=== PATIENT | female | born 1980 | race African-American/Black ===

== ENCOUNTER 2021-01-28 19:03 | Emergency (ER) | payer BC, SELFPAY ==
[2021-01-29 15:07] LABS: SARS-CoV-2 PCR by NAA DETECTED (NotDetected)
== END 2021-01-28 20:19 | disposition home or self-care (01) ==
LOC: CSHERS 19:03
DX: U07.1 COVID-19 (principal); E11.9 Type 2 diabetes mellitus without complications; I10 Essential (primary) hypertension; Z79.899 Other long term (current) drug therapy
CPT/HCPCS: 99283; U0003; U0005

== ENCOUNTER 2023-02-22 20:13 | Emergency (ER) | payer MEDICAID, SELFPAY ==
[2023-02-22 21:20] LABS: SARS-CoV-2 NAA Rapid Test Not Detected (NotDetected)
== END 2023-02-22 23:34 | disposition left against medical advice (07) ==
LOC: CSHERS 20:13
DX: Z53.21 Procedure and treatment not carried out due to patient leaving prior to being seen by health care provider (principal)

== ENCOUNTER 2023-02-23 12:02 | Emergency (ER) | payer MEDICAID | END 2023-02-23 13:28 | disposition home or self-care (01) | LOC: CSHERS 12:02 | DX: J20.9 Acute bronchitis, unspecified (principal); E11.9 Type 2 diabetes mellitus without complications; I10 Essential (primary) hypertension | CPT/HCPCS: 71045 ==